=== PATIENT | male | born 1960 | race American Indian/Alaskan Native ===

== ENCOUNTER 2017-10-09 08:50 | Emergency (ER) | payer BC ==
--- NOTE | 2017-10-09 12:13 | Emergency Department Report ---
HPI - General Chief Complaint: Extremity Injury, Upper Time Seen by Provider: 10/09/17 11:28 - HPI HPI: 56-year-old male presents to the emergency department with complaint of left elbow pain, swelling and darkening of the skin/bruising. Patient had surgery done on the elbow at home in [place] a week ago Wednesday, 9 days ago, for some bone spurs. He says that he had improvement at that time postop but over the past few days he has developed the above-mentioned symptoms. It is causing some trouble doing a full extension of that left elbow. He has run out of pain medication. He returns to [place] in about one week. He does have a history of DVT. ED Past Medical Hx - Past Medical History Previous Medical History?: No Hx Deep Vein Thrombosis: Yes - Surgical History Past Surgical History?: Yes Additional Surgical History: left arm. filter placed in right leg for dvt's - Social History Smoking Status: Current Every Day Smoker Substance Use Type: Alcohol - Medications Home Medications: Home Medications Medication Instructions Recorded Confirmed Last Taken Type HYDROcodone/APAP 5-325 [[place] 1 each PO Q6HR PRN #10 tablet 10/09/17 Unknown Rx 5/325] Sulfamethoxazole/Trimethoprim 1 each PO BID #14 tablet 10/09/17 Unknown Rx [Bactrim DS TAB] ED Review of Systems ROS: Stated complaint: LEFT ARM PAIN Other details as noted in HPI Comment: All other systems reviewed and negative Constitutional: denies: chills, fever Eyes: denies: eye pain, eye discharge, vision change ENT: denies: ear pain, throat pain Respiratory: denies: cough, shortness of breath, wheezing Cardiovascular: denies: chest pain, palpitations Gastrointestinal: denies: abdominal pain, nausea, diarrhea Genitourinary: denies: urgency, dysuria Musculoskeletal: joint swelling, arthralgia Skin: change in color. denies: rash Neurological: denies: headache, weakness, paresthesias Physical Exam - Physical Exam Vital Signs: Vital Signs 10/09/17 09:35 Temperature 98.6 F Pulse Rate 88 Respiratory 18 Rate Blood Pressure 118/80 O2 Sat by Pulse 100 Oximetry Physical Exam: GENERAL: The patient is well-developed well-nourished. HENT: Normocephalic. Atraumatic. Patient has moist mucous membranes. EYES: Extraocular motions are intact. NECK: Supple. Trachea is midline. CHEST/LUNGS: Clear to auscultation. There is no respiratory distress noted. HEART/CARDIOVASCULAR: Regular. There is no tachycardia. There is no murmur. ABDOMEN: Abdomen is soft, nontender. Patient has normal bowel sounds. There is no abdominal distention. SKIN: There is some ecchymosis seen to the left upper extremity from the mid bicep to the mid forearm, mostly seen on the volar side. There is nonpitting swelling to the circumferential left elbow. NEURO: The patient is awake, alert, and oriented. The patient is cooperative. The patient has no focal neurologic deficits. The patient has normal speech. MUSCULOSKELETAL: There is some tenderness to palpation around the left elbow. There is some decreased range of motion to the point where the patient cannot do full extension of the left elbow. Radial pulse +2 over 4 to the affected left wrist. Cap refill less than 2 seconds. ED Course Vital Signs 10/09/17 09:35 Temperature 98.6 F Pulse Rate 88 Respiratory 18 Rate Blood Pressure 118/80 O2 Sat by Pulse 100 Oximetry ED Medical Decision Making - Lab Data Result diagrams: 10/09/17 12:18 10/09/17 12:18 - Radiology Data Radiology results: report reviewed, image reviewed EXAM: XR ELBOW 3+V LT HISTORY: left elbow pain, post op from surgery COMPARISON: None. TECHNIQUE: Two views of the left elbow FINDINGS: There is diffuse elbow joint space narrowing with hypertrophic changes. A definite fracture line is not visualized. There is a large joint effusion. There is diffuse soft tissue swelling. IMPRESSION: Degenerative changes of the left elbow. No definite fracture line is visualized. Large joint effusion and diffuse soft tissue swelling. Transcribed By: DORI Dictated By: NADEGE LAND MD Electronically Authenticated By: NADEGE LAND MD Signed Date/Time: 10/09/17 1220 Left upper extremity venous Doppler was negative for DVT or any other acute process. - Medical Decision Making Patient presents with some bruising, swelling and discomfort to the left elbow which was surgically repaired by a laparoscopic procedure for bone spurs down about 9 days ago in his home city of [place]. X-ray shows a large joint effusion and some diffuse soft tissue swelling but otherwise no fracture, dislocation or foreign bodies. Labs are unremarkable and there is no leukocytosis. Vital signs stable including being afebrile. There is no current bleeding or any purulent discharge seen. Patient appears safe for discharge home at this time. He has been encouraged to follow up with his orthopedist as soon as he can return home to [place]. However he was given referrals for local orthopedic groups here and was discharged home with a perception for pain medication and antibiotics. - Differential Diagnosis joint effusion, septic joint, contusion, postop pain Critical Care Time: No Critical care attestation.: If time is entered above; I have spent that time in minutes in the direct care of this critically ill patient, excluding procedure time. ED Disposition Clinical Impression: Left elbow pain, Effusion of elbow joint, left, Post-op pain Disposition: TO HOME OR SELFCARE Is pt being admited?: No Condition: Stable Additional Instructions: You were seen today for increased pain, swelling, bruising of the left elbow that was surgically repaired. Your were found to have a large joint effusion within the elbow. It is recommended that you follow up with your own orthopedic surgeon. However, I have given you a referral for some local orthopedists until you're able to return to [place]. Return to the emergency Department with any worsening of your symptoms, development of fever, numbness, or with any acute distress. You have been prescribed a medication that is sedating and therefore should not be taken prior to driving, working, and responsible for children and in no way should be mixed with alcohol of any quantity. Prescriptions: HYDROcodone/APAP 5-325 [[place] 5/325] 1 each PO Q6HR PRN #10 tablet PRN Reason: Pain Sulfamethoxazole/Trimethoprim [Bactrim DS TAB] 1 each PO BID #14 tablet Referrals: EL PORTILLO MD [Staff Physician] - [facility] [Provider Group] - [facility] Time of Disposition: 13:58
--- NOTE | 2017-10-09 12:27 | XRay Report ---
FINAL REPORT EXAM: XR ELBOW 3+V LT HISTORY: left elbow pain, post op from surgery COMPARISON: None. TECHNIQUE: Two views of the left elbow FINDINGS: There is diffuse elbow joint space narrowing with hypertrophic changes. A definite fracture line is not visualized. There is a large joint effusion. There is diffuse soft tissue swelling. IMPRESSION: Degenerative changes of the left elbow. No definite fracture line is visualized. Large joint effusion and diffuse soft tissue swelling.
[2017-10-09 12:58] LABS: Basophils # (Auto) 0.1 K/mm3 (0.0-0.1); Basophils % (Auto) 0.9 % (0.0-1.8); Eosinophils # (Auto) 0.4 K/mm3 (0.0-0.4); Eosinophils % (Auto) 4.6 % (0.0-4.3); Hematocrit 45.8 % (35.5-45.6); Hemoglobin 16.1 gm/dl (11.8-15.2); Lymphocytes # (Auto) 2.4 K/mm3 (1.2-5.4); Lymphocytes % (Auto) 25.5 % (13.4-35.0); Mean Corpuscular HGB Conc 35 % (32-34); Mean Corpuscular Hemoglobin 33 pg (28-32); Mean Corpuscular Volume 95 fl (84-94); Monocytes # (Auto) 0.9 K/mm3 (0.0-0.8); Monocytes % (Auto) 9.9 % (0.0-7.3); Platelet Count 298 K/mm3 (140-440); Red Blood Count 4.84 M/mm3 (3.65-5.03); Red Cell Distribution Width 12.9 % (13.2-15.2)
[2017-10-09 13:16] LABS: BUN/Creatinine Ratio 9; Blood Urea Nitrogen 7 mg/dL (9-20); Calcium 9.6 mg/dL (8.4-10.2); Hemolysis Index 11
[2017-10-09 17:21] VITALS: BP 142/95
--- NOTE | 2017-10-13 17:47 | Vascular Lab Report ---
LEFT UPPER EXTREMITY VENOUS DUPLEX: REASON FOR EXAM: Pain and swelling of the left upper extremity COMMENTS ON THE LEFT: All arm veins visualized are freely compressible without evidence of internal echogenicity. The subclavian and internal jugular veins are free of thrombus. Flow is spontaneous and phasic throughout. COMMENTS ON THE RIGHT: A limited study of the jugular and subclavian veins shows no evidence of thrombus. IMPRESSION: No evidence of acute or chronic deep venous thrombosis in the left upper extremity.
== END 2017-10-09 14:28 | disposition home or self-care (01) ==
LOC: ED 08:50
DX: M25.422 Effusion, left elbow (principal); F17.200 Nicotine dependence, unspecified, uncomplicated; Z86.718 Personal history of other venous thrombosis and embolism
CPT/HCPCS: 36415; 80048; 85025